=== PATIENT | female | born 1965 | race Caucasian/White ===

== ENCOUNTER → 2020-09-20 05:08 | Outpatient (CLI) | payer BC, SELFPAY ==
[2020-09-20 19:22] LABS: SARS-CoV-2 RNA PCR Negative
== END ==
PROVIDERS: PCP Family Medicine; Visit Provider Internal Medicine Gastroenterology
DX: Z01.812 Encounter for preprocedural laboratory examination (principal); Z20.822 Contact with and (suspected) exposure to COVID-19
CPT/HCPCS: C9803; U0003; U0005

== ENCOUNTER 2020-09-23 01:07 | Day surgery (SDC) | payer BC, SELFPAY ==
[2020-09-10 13:31] VITALS: BMI 26.7
[2020-09-23 10:36] VITALS: BP 155/71; PULSE 80; RESP 16; TEMP 36.9; O2SAT 98; BMI 27.4
--- NOTE | 2020-09-23 10:48 | WPDANESEPPF ---
Anes - Initial Pre Proc Eval Procedure: Operation Date: 09/23/20 11:45 Proposed Procedures p Esophagogastroduodenoscopy - Philippe Santana MD Date/Time: 09/23/20 10:48 Surgeon: Philippe Santana MD Pre Op Diagnosis: GERD Patient Data Age: 55 Gender: F Height: 5 ft 5 in Weight: 74.8 kg Last Vital Signs Temp 98.4 F 09/23/20 10:36 Pulse 80 09/23/20 10:36 Resp 16 09/23/20 10:36 BP 155/71 H 09/23/20 10:36 Pulse Ox 98 09/23/20 10:36 Allergies Allergy/AdvReac Type Severity Reaction Status Date / Time No Known Allergies Allergy Verified 09/23/20 10:36 Home Medications Medication Instructions Recorded Confirmed Type estradiol 2 mg tablet 2 mg PO DAILY 08/22/20 09/10/20 History omeprazole 40 mg capsule,delayed 40 mg PO DAILY #90 cap 08/22/20 09/10/20 Rx release Patient hx anesthesia problems: none Family hx anesthesia problems: none PMFSH Past Medical History Medical History (Updated 09/23/20 @ 10:54 by Deandre Masters MD) Colon cancer screening GERD (gastroesophageal reflux disease) Surgical History Surgical History H/O: hysterectomy (~2006) Social History Social History Smoking status: Never smoker Alcohol intake: current Substance use: never Substance use type: does not use Living arrangements: with family Additional living arrangements comments: Gender identity (if verbalized by the patient): Female Spiritual care concerns: No Anes - Eval Final PreProcedure Day of Procedure 09/23/20 10:48 Patient weight: normal Heart: regular rate and rhythm Airway: Mallampati scale class II Neurological: alert and oriented Last oral intake: >/= 8 hours ASA classification: II Emergent: no Anesthetic plan: proceed Anesthesia type and monitoring: general GIVS and standard monitoring Informed Consent: The patient's anesthetic plan and its attendant risks and benefits were discussed with the patient/family/POA. Questions were solicited and answers provided to the satisfaction of the patient/family/POA.
[2020-09-23] MEDS: LACTATED RINGERS 1,000 ML 150 ML IV CONT (10:57)
--- NOTE | 2020-09-23 11:09 | WPDHPUPDATE1 ---
History and Physical Update Update Date/Time: 09/23/20 11:09 History and Physical has been reviewed, including an updated exam of the patient. There are NO changes in the patient's condition. Risks, benefits, and alternatives have been discussed and questions answered. Patient agrees to proceed with procedure.
[2020-09-23] MEDS: BENZOCAINE (*SP) 60 ML SPRAY CAN (HURRICAINE) 1 SPRAY MUCOUS MEM (11:14)
[2020-09-23 11:25] VITALS: BP 104/41; PULSE 61; RESP 17; O2SAT 100
[2020-09-23 11:35] VITALS: BP 109/58; RESP 19; O2SAT 100
[2020-09-23 11:55] VITALS: BP 119/67; PULSE 61; RESP 17; O2SAT 100
== END 2020-09-23 12:15 | disposition home or self-care (01) ==
PROVIDERS: PCP Family Medicine; Visit Provider Internal Medicine Gastroenterology
PROC: 0DJ08ZZ Inspection of Upper Intestinal Tract, Via Natural or Artificial Opening Endoscopic (ICD-10-PCS; CPT 43235; principal; 2020-09-23 11:45)
DX: K21.9 Gastro-esophageal reflux disease without esophagitis (principal); K44.9 Diaphragmatic hernia without obstruction or gangrene; R07.89 Other chest pain
CPT/HCPCS: 43239; 88305; J2704; J7120

== ENCOUNTER 2020-10-09 14:05 | Outpatient (CLI) | payer BC, SELFPAY ==
[2020-10-09 14:48] LABS: Lipase 90 U/L (23-300)
== END 2020-10-09 14:06 | disposition home or self-care (01) ==
PROVIDERS: PCP Family Medicine; Visit Provider Nurse Practitioner Family
DX: R10.13 Epigastric pain (principal)
CPT/HCPCS: 36415; 83690

== ENCOUNTER 2020-10-29 09:02 | Outpatient (CLI) | payer BC, SELFPAY ==
--- NOTE | ~2020-10-29 | US_ITS ---
US abdomen complete DATE: 10/29/2020 09:39 INDICATION: Epigastric abdominal pain TECHNIQUE: Real-time imaging of the abdomen. Doppler analysis. COMPARISON: None FINDINGS: No hepatic or pancreatic space-occupying mass lesion is evident. Normal hepatopedal portal venous flow direction. No gallstones or gallbladder wall thickening or abnormal pericholecystic fluid collection. Negative s onographic Soto's sign. The common bile duct measures 2.3 mm, normal. Normal splenic size. The right kidney measures 9.2 cm length, left kidney 9.4 cm length. An approximately 6 x 10 mm hypere choic area with some shadowing is noted in the mid to upper right kidney; consider KUB to evaluate fo r possible calcified right renal calculus. No renal mass lesion or hydronephrosis. The abdominal aorta is of normal caliber. Flow is demonstrated in the inferior vena cava. IMPRESSION: Probable right renal calculus; otherwise no significant abnormality Consider KUB for evaluation of possible calcified right renal calculus Reviewed, dictated and finalized at [facility]. Reviewed, dictated and finalized at location A.
== END 2020-10-29 09:03 | disposition home or self-care (01) ==
PROVIDERS: PCP Family Medicine; Visit Provider Nurse Practitioner Family
DX: R10.13 Epigastric pain (principal)
CPT/HCPCS: 76700

== ENCOUNTER 2020-11-12 08:59 | Outpatient (CLI) | payer BC, SELFPAY ==
--- NOTE | ~2020-11-12 | XR_ITS ---
EXAMINATION: XR abdomen/kub 1V INDICATION: Abnormal findings on other diagnostic imaging, possible right nephrolithiasis. TECHNIQUE: Supine views of the abdomen were obtained on 2 radiographs. COMPARISON: None FINDINGS: A 7 mm stone projects in the right mid kidney. No additional urolithiasis is identified. Th e bowel gas pattern is normal. There are no dilated loops of bowel. 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 Phleboliths are noted in the pelvis. IMPRESSION: 1. Right nephrolithiasis. Reviewed, dictated and finalized at location A. IMPRESSION: 1. Right nephrolithiasis.
== END 2020-11-12 09:00 | disposition home or self-care (01) ==
PROVIDERS: PCP Family Medicine; Visit Provider Nurse Practitioner Family
DX: N20.0 Calculus of kidney (principal)
CPT/HCPCS: 74018

== ENCOUNTER 2020-11-25 08:36 | Outpatient (CLI) | payer BC, SELFPAY ==
[2020-11-25 10:14] LABS: INR 0.9
== END 2020-11-25 08:37 | disposition home or self-care (01) ==
PROVIDERS: PCP Family Medicine; Visit Provider Urology
DX: N20.0 Calculus of kidney (principal)
CPT/HCPCS: 36415; 85610; 85730; 87086

== ENCOUNTER → 2020-12-03 01:12 | Outpatient (CLI) | payer BC, SELFPAY ==
[2020-12-03 17:24] LABS: SARS-CoV-2 RNA PCR Negative
== END ==
PROVIDERS: PCP Family Medicine; Visit Provider Urology
DX: Z01.812 Encounter for preprocedural laboratory examination (principal); Z20.822 Contact with and (suspected) exposure to COVID-19
CPT/HCPCS: C9803; U0003; U0005

== ENCOUNTER 2020-12-06 00:48 | Day surgery (SDC) | payer BC, SELFPAY ==
[2020-11-19 14:21] VITALS: BMI 26.7
--- NOTE | 2020-11-26 08:19 | P.HP_ITS ---
History of Present Illness History of Present Illness Consent: Risks, benefits, and alternatives have been discussed and questions answered. Patient agrees to proceed with procedure. Chief complaint: right kidney stones Narrative: Yumiko Cortez is a 55 year old female Without prior known history of urolithiasis. Abdominal ultrasonography for heartburn symptoms revealed a 7- 10 mm stone in her right kidney that is calcified by KUB. After discussion of therapeutic options she has elected for right ESWL. She is aware the risk including, but not limited to, failure to completely fracture her stone, residual fragments acute cause pain and injury to her right kidney. Review of Systems Cardiovascular: Cardiovascular: Denies chest pain, Denies lightheadedness, Denies palpitations and Denies dyspnea Respiratory: Respiratory: Denies dyspnea Gastrointestinal: Gastrointestinal: Denies diarrhea, Denies nausea and Denies vomiting Genitourinary: Genitourinary: Denies hematuria and Denies dysuria Endocrine: Endocrine: Denies palpitations PMFSH Past Medical History Medical History Abnormal finding on imaging Colon cancer screening GERD (gastroesophageal reflux disease) Surgical History Surgical History H/O: hysterectomy (~2006) Social History Social History Smoking status: Never smoker Alcohol intake: current Substance use: never Substance use type: does not use Additional living arrangements comments: HUSB Gender identity (if verbalized by the patient): Female Spiritual care concerns: No Meds Home Medications and Allergies Home Medications Medication Instructions Recorded Confirmed Type estradiol 2 mg tablet 2 mg PO DAILY 08/22/20 11/19/20 History omeprazole 40 mg PO DAILY PRN 11/19/20 11/19/20 History Allergies Allergy/AdvReac Type Severity Reaction Status Date / Time No Known Allergies Allergy Verified 11/19/20 14:18 Exam Const: General: no acute distress Resp: Effort & Inspection: normal respiratory effort GI: Inspection: non-distended GI Palp: No abdominal tenderness and No Guarding due to palpation present (GI) Auscultation: normal bowel sounds Assessment and Plan Assessment and plan (1) Right kidney stone: Code(s): N20.0 - Calculus of kidney Status: Acute
--- NOTE | 2020-12-05 16:12 | WPDANESEPPF ---
Anes - Initial Pre Proc Eval Procedure: Operation Date: 12/06/20 07:30 Proposed Procedures p Right Renal Extracorporeal Shock Wave Lithotripsy - Bay Manzano MD Date/Time: 12/05/20 16:12 Surgeon: Bay Manzano MD Pre Op Diagnosis: right kidney stones Patient Data Age: 55 Gender: F Height: 1.65 m Weight: 73 kg Allergies Allergy/AdvReac Type Severity Reaction Status Date / Time No Known Allergies Allergy Verified 12/06/20 06:20 Home Medications Medication Instructions Recorded Confirmed Type estradiol 2 mg tablet 2 mg PO DAILY 08/22/20 12/06/20 History omeprazole 40 mg PO DAILY PRN 11/19/20 12/06/20 History Patient hx anesthesia problems: none Family hx anesthesia problems: none [facility] Past Medical History Medical History Abnormal finding on imaging Colon cancer screening GERD (gastroesophageal reflux disease) Surgical History Surgical History H/O: hysterectomy (~2006) Social History Social History Smoking status: Never smoker Alcohol intake: current Substance use: never Substance use type: does not use Living arrangements: with family Additional living arrangements comments: KELY Gender identity (if verbalized by the patient): Female Spiritual care concerns: No Anes - Eval Final PreProcedure Day of Procedure 12/05/20 16:12 Patient weight: overweight Heart: regular rate and rhythm Lungs: clear to auscultation and normal air movement Airway: Mallampati scale class II Neurological: alert and oriented Last oral intake: >/= 8 hours ASA classification: II Emergent: no Anesthetic plan: proceed Anesthesia type and monitoring: general LMA Informed Consent: The patient's anesthetic plan and its attendant risks and benefits were discussed with the patient/family/POA. Questions were solicited and answers provided to the satisfaction of the patient/family/POA.
[2020-12-06] VITALS (13 sets, daily range): BP systolic 104–161; BP diastolic 56–92; PULSE 49–72; RESP 12–18; TEMP 36.2–36.3; O2SAT 100; BMI 27.1
--- NOTE | ~2020-12-06 | XR_ITS ---
XR abdomen/kub 1V 12/06/2020 06:09 Indication: Renal stones. Procedure: KUB Comparison: 11/12/2020 Findings: Stable right renal stone. Bowel gas pattern nonobstructive. Moderate colonic fecal loading. There are pelvic phleboliths. No acute osseous abnormality. Impression: 1: Stable right nephrolithiasis. Reviewed, dictated and finalized at location A. Impression: 1: Stable right nephrolithiasis.
[2020-12-06] MEDS: LACTATED RINGERS 1,000 ML 30 ML IV CONT ×3 (06:30→11:27)
--- NOTE | 2020-12-06 06:39 | WPDHPUPDATE1 ---
History and Physical Update Update Date/Time: 12/06/20 06:39 History and Physical has been reviewed, including an updated exam of the patient. There are NO changes in the patient's condition. Risks, benefits, and alternatives have been discussed and questions answered. Patient agrees to proceed with procedure.
[2020-12-06] MEDS: ceFAZolin 2 GM/D5W 50 ML 2 GM/50 ML BAG IVPB (07:26)
--- NOTE | 2020-12-06 09:11 | SUR.PHASEI ---
0900 DR GUERRERO WAS UNABLE TO FININS THE PROCEDURE DUE TO MACHINE BREAKING. PT CURRENTLY IN PACU AWAKE AND DOING WELL, VSS ON ROOM AIR. MACHINE IS BEING REPLACED AND PT WILL THEN BE BROUGHT BACK TO THE OR TO FINISH PROCEDURE. PT/SPOUSE ARE AWARE OF THE SITUATION AND AGREE TO PROCEED WHEN AVAILABLE. DR GUERRERO ALSO SPOKE WITH PT AND SPOUSE.
--- NOTE | 2020-12-06 10:28 | P.OP_ITS ---
Procedure Note - Detailed Date of Procedure 12/06/20 Pre-op Diagnosis right kidney stones Post-op Diagnosis same Procedure Performed right ESWL Surgeon Bay Manzano MD Qualitative Researcher none Anesthesia general Indications right renal stone Findings 9-10mm right renal stone Description of Procedure A bit of an unusual procedure today in the a 950 shocks the Lithotripter quit generating a pulse. This is after the patient had been positioned in routine supine position and after the uneventful induction of a general LMA anesthetic. At that point in the treatment the stone appeared to be only partially fragmented. We decided to awaken the patient and after discussion with her and her decided to proceed with completion the asked while after per curing a 2nd machine. This therefore required a 2nd induction. After that uneventful induction an additional 1550 shocks were administered. Her did appear to be excellent fragmentation of the stone at this point. She tolerated these procedures well. Implants None Estimated Blood Loss 0 Urine Output 425 Drains No Packing No Pathology none sent Complications No immediate complications Condition stable Disposition PACU
--- NOTE | 2020-12-06 14:35 | SUR.PHASEII ---
RN told Dr. Manzano patient is prone to getting yeast infections with antibiotics. Dr. Manzano wrote a script for Diflucan.
== END 2020-12-06 12:58 | disposition home or self-care (01) ==
PROVIDERS: PCP Family Medicine; Visit Provider Urology
PROC: (CPT 50590; principal; 2020-12-06 07:30)
DX: N20.0 Calculus of kidney (principal); K21.9 Gastro-esophageal reflux disease without esophagitis
CPT/HCPCS: 50590; 74018; J0690; J1100; J2250; J2405; J2704; J3010; J7120

== ENCOUNTER 2021-04-10 07:05 | Outpatient (CLI) | payer BC, SELFPAY ==
--- NOTE | ~2021-04-10 | NM_ITS ---
EXAM: NM gastric emptying study DATE: 04/10/2021 12:12 INDICATION: Nausea TECHNIQUE: A gastric emptying study was performed using the methodology of Ming GERMAIN, et al. J Nucl Med 2007; 48:568-572. The patient was given a meal consisting of 2 scrambled eggs labeled with 0.95 mCi Tc-99m sulfur colloid, 2 slices of toast, two packages of jam, and approximately 120 mL of water. Simultaneous anterior and posterior 1-min images of the abdomen were obtained with the patient supin e at multiple time points over a total period of 4 hours. The geometric mean of anterior and posterio r views was determined, and the percentage retention was calculated for each time point. COMPARISON: None. FINDINGS: Gastric retention of the radiotracer-labeled meal was 59%, 30%, and 2% at the 1-hour, 2-hour, and 4-h our time points, respectively. With this technique, apparent rapid gastric emptying is suggested by < 30% gastric retention at 1 hour. Delayed gastric emptying is defined by gastric retention of >90% at 1 hour, >60% retention at 2 hours, or >10% retention at 4 hours. IMPRESSION: 1. Normal gastric emptying. Reviewed, dictated and finalized at location A. IMPRESSION: 1. Normal gastric emptying.
== END 2021-04-10 07:06 | disposition home or self-care (01) ==
LOC: ANHIMG 07:06
PROVIDERS: PCP Family Medicine; Visit Provider Internal Medicine Gastroenterology
DX: R11.0 Nausea (principal)
CPT/HCPCS: 78264; A9541

== ENCOUNTER 2021-09-16 01:08 | Day surgery (SDC) | payer BC, SELFPAY ==
[2021-09-04 13:44] VITALS: BMI 27.5
[2021-09-16 10:03] VITALS: BP 159/60; PULSE 99; RESP 18; TEMP 36.7; O2SAT 99; BMI 28.1
[2021-09-16] MEDS: LACTATED RINGERS 1,000 ML 150 ML IV CONT (10:17)
--- NOTE | 2021-09-16 10:29 | WPDANESEPPF ---
Anes - Initial Pre Proc Eval Procedure: Operation Date: 09/16/21 11:15 Proposed Procedures p Screening Colonoscopy - Philippe Santana MD Date/Time: 09/16/21 10:29 Surgeon: Philippe Santana MD Pre Op Diagnosis: neoplasm screening Patient Data Age: 56 Gender: F Height: 1.65 m Weight: 76.7 kg Last Vital Signs Temp 98.1 F 09/16/21 10:03 Pulse 99 09/16/21 10:03 Resp 18 09/16/21 10:03 BP 159/60 H 09/16/21 10:03 Pulse Ox 99 09/16/21 10:03 Allergies Allergy/AdvReac Type Severity Reaction Status Date / Time No Known Allergies Allergy Verified 09/16/21 10:02 Home Medications Medication Instructions Recorded Confirmed Type estradiol 2 mg tablet 2 mg PO DAILY 08/22/20 09/16/21 History baclofen 5 mg tablet 5 mg PO TID #60 tablet 03/20/21 09/16/21 Rx omeprazole 20 mg capsule,delayed 20 mg PO DAILY #30 cap 06/26/21 09/16/21 Rx release Patient hx anesthesia problems: none Family hx anesthesia problems: none Results Review: All pre-operative results and documents have been reviewed as part of the pre-operative evaluation. [facility] Past Medical History Medical History (Updated 06/26/21 @ 09:46 by Philippe Santana MD) Abnormal finding on imaging Colon cancer screening GERD (gastroesophageal reflux disease) Nausea Surgical History Surgical History H/O: hysterectomy (~2006) Social History Social History Smoking status: Never smoker Alcohol intake: current Alcohol use details: rarely Substance use: never Substance use type: does not use Living arrangements: with family Additional living arrangements comments: HUSB Gender identity (if verbalized by the patient): Female Sexual Orientation (if Verbalized by the Patient): Straight or Heterosexual Spiritual care concerns: No Anes - Eval Final PreProcedure Day of Procedure 09/16/21 10:29 Patient weight: normal Heart: regular rate and rhythm Lungs: clear to auscultation Airway: Mallampati scale class II Neurological: alert and oriented Last oral intake: >/= 8 hours ASA classification: II Emergent: no Anesthetic plan: proceed Anesthesia type and monitoring: general GIVS and standard monitoring Results Review: All pre-operative results and documents have been reviewed as part of the pre-operative evaluation. Informed Consent: The patient's anesthetic plan and its attendant risks and benefits were discussed with the patient/family/POA. Questions were solicited and answers provided to the satisfaction of the patient/family/POA.
--- NOTE | 2021-09-16 10:49 | PM.HPGS ---
History of Present Illness History of Present Illness Consent: Risks, benefits, and alternatives have been discussed and questions answered. Patient agrees to proceed with procedure. Chief complaint: neoplasm screening Narrative: Yumiko Cortez is a 56 year old female here for first screening colonoscopy Review of Systems Constitutional: Constitutional: Denies headache(s) and Denies weakness Eyes: Eyes: Denies blurry vision ENT: Reports Normal hearing present, Denies headache(s) and Denies neck pain Cardiovascular: Cardiovascular: Denies chest pain and Denies dyspnea Respiratory: Respiratory: Denies dyspnea Gastrointestinal: Gastrointestinal: Reports no additional gastrointestinal complaints Genitourinary: Genitourinary: Denies dysuria Musculoskeletal: Musculoskeletal: Denies neck pain Integumentary/Breasts: Skin/Breast: Denies dry skin Neurologic: Reports Normal hearing present, Denies headache(s) and Denies weakness Psychiatric: Psychiatric: Denies anxiety Endocrine: Endocrine: Denies change in body appearance Hematologic/Lymphatic: Hematologic/Lymphatic: Denies easy bleeding Allergic/Immunologic: Allergic/Immunologic: Denies urticaria ON LICENSE OF [facility] Past Medical History Medical History (Updated 06/26/21 @ 09:46 by Philippe Santana MD) Abnormal finding on imaging Colon cancer screening GERD (gastroesophageal reflux disease) Nausea Surgical History Surgical History H/O: hysterectomy (~2006) Social History Social History Smoking status: Never smoker Alcohol intake: current Alcohol use details: rarely Substance use: never Substance use type: does not use Living arrangements: with family Additional living arrangements comments: KELY Gender identity (if verbalized by the patient): Female Sexual Orientation (if Verbalized by the Patient): Straight or Heterosexual Spiritual care concerns: No Meds Home Medications and Allergies Home Medications Medication Instructions Recorded Confirmed Type estradiol 2 mg tablet 2 mg PO DAILY 08/22/20 09/16/21 History baclofen 5 mg tablet 5 mg PO TID #60 tablet 03/20/21 09/16/21 Rx omeprazole 20 mg capsule,delayed 20 mg PO DAILY #30 cap 06/26/21 09/16/21 Rx release Allergies Allergy/AdvReac Type Severity Reaction Status Date / Time No Known Allergies Allergy Verified 09/16/21 10:02 Vital Signs Vital Signs - 24 hr 09/16/21 10:03 Temperature 98.1 F Pulse Rate 99 Respiratory Rate 18 Blood Pressure 159/60 H Pulse Oximetry 99 Exam Const: General: comfortable and no acute distress HENMT: General nose exam: Normal nares present Eyes: General: appearance normal, both eyes and all related structures Neck: Neck: no JVD Resp: Auscultation: clear to auscultation bilaterally Cardio: Rate: regular rate Rhythm: regular rhythm GI: Inspection: non-distended GI Palp: Yes Soft to palpation Skin: General skin exam: normal color Neuro: General: gait normal Speech: normal speech Extrem: General: normal to inspection Psych: Mental Status: mental status grossly normal Assessment and Plan Assessment and plan (1) Colon cancer screening: Code(s): Z12.11 - Encounter for screening for malignant neoplasm of colon Status: Acute Assessment and Plan: colonoscopy
[2021-09-16 11:11] VITALS: BP 106/75; PULSE 60; RESP 22; O2SAT 99
[2021-09-16 11:21] VITALS: BP 116/71; PULSE 54; RESP 19; O2SAT 96
[2021-09-16 11:31] VITALS: BP 145/72; PULSE 53; RESP 19; O2SAT 100
== END 2021-09-16 11:42 | disposition home or self-care (01) ==
PROVIDERS: PCP Family Medicine; Visit Provider Internal Medicine Gastroenterology
PROC: 0DJD8ZZ Inspection of Lower Intestinal Tract, Via Natural or Artificial Opening Endoscopic (ICD-10-PCS; CPT 45378; principal; 2021-09-16 11:15)
DX: Z12.11 Encounter for screening for malignant neoplasm of colon (principal); K21.9 Gastro-esophageal reflux disease without esophagitis
CPT/HCPCS: 45378; J2704; J7120

== ENCOUNTER 2022-02-11 09:27 | Outpatient (CLI) | payer BC, SELFPAY ==
[2022-02-11 18:43] LABS: Basophils Absolute Auto 0.2 K/mm3 (0.0-0.1); Basophils Percent Auto 2.3 % (0.2-1.2); Eosinophils Absolute Auto 0.3 K/mm3 (0-0.3); Eosinophils Percent Auto 3.1 % (0-4.4); Hematocrit 43.9 % (37.0-47.0); Immature Granulocyte Absolute 0.02 K/mm3 (0.00-0.031); Immature Granulocyte Percent A 0.3 % (0-0.5); Lymphocytes Absolute Auto 2.08 K/mm3 (0.9-3.2); Lymphocytes Percent Auto 26.2 % (18.3-44.2); Mean Corpuscular HGB Conc 31.9 g/dl (32-36); Mean Corpuscular Volume 91.1 fl (80-100); Mean Platelet Volume 10.9 fl (7.4-10.4); Monocytes Absolute Auto 0.7 K/mm3 (0.1-0.6); Monocytes Percent Auto 8.6 % (2.6-8.5); Neutrophils Absolute Auto 4.7 K/mm3 (1.3-6.7); Neutrophils Percent Auto 59.5 % (45.5-73.1); Platelet Count Result 346 k/mm3 (150-375); Red Blood Count 4.82 M/mm3 (4.2-5.4); Red Cell Distribution Width 12.7 % (11.5-14.5)
[2022-02-11 20:07] LABS: Alanine Aminotransferase 17 U/L (6-35); Albumin Level 4.1 g/dL (3.5-5.1); Alkaline Phosphatase 105 U/L (38-126); Amylase 63 U/L (30-110); Anion Gap 8 mmol/L (8-16); Aspartate Amino Transferase 37 U/L (14-36); Bilirubin,Total 0.3 mg/dL (0.2-1.3); Blood Urea Nitrogen 16 mg/dL (7-17); Calcium 9.4 mg/dL (8.4-10.2); Carbon Dioxide 28 mmol/L (22-30); Chloride 101 mmol/L (98-107); Cholesterol 192 mg/dL (0-200); Estimated Glomerular Filt Rate > 60; Glucose 88 mg/dL (65-110); HDL Direct 77 mg/dL; Lipase 60 U/L (23-300); Potassium 5.2 mmol/L (3.4-5.0); Sodium 137 mmol/L (137-145); Triglycerides 46 mg/dL (<150)
[2022-02-11 20:18] LABS: LDL Cholesterol Direct 85 mg/dL
== END 2022-02-11 09:28 | disposition home or self-care (01) ==
LOC: ANHGOSHLAB 09:30
PROVIDERS: PCP Family Medicine; Visit Provider Nurse Practitioner
DX: R10.10 Upper abdominal pain, unspecified (principal); Z13.220 Encounter for screening for lipoid disorders; R10.13 Epigastric pain
CPT/HCPCS: 36415; 80053; 80061; 82150; 83690; 85025; 86003

== ENCOUNTER 2022-02-16 16:08 | Outpatient (CLI) | payer BC, SELFPAY ==
--- NOTE | ~2022-02-16 | CT_ITS ---
EXAMINATION: CT abdomen pelvis wo con DATE: 02/16/2022 16:32 INDICATION: Left flank pain. Epigastric abdominal pain. TECHNIQUE: Computed tomography (CT) of the abdomen and pelvis was performed without intravenous contr ast. Automated exposure control and iterative reconstruction technique were employed. The dose-length product was 574.41 mGy-cm. COMPARISON: None. FINDINGS: The visualized portions of the lung bases demonstrate mild atelectasis. A calcified right l ignacio nodule is consistent with old granulomas disc disease. No pleural effusion. The heart size is nor mal. No pericardial effusion. Calcifications in the liver and spleen are consistent with old granulom atous disease. The gallbladder, pancreas, and adrenal glands are normal. There is a 7 mm calcificatio n in right kidney that may be parenchymal. Left kidney is normal. There are no dilated loops of bowel . The appendix is normal. There are no pathologically enlarged lymph nodes. There is no free intraper itoneal fluid. There is an umbilical hernia containing fat. There is moderate lumbar spondylosis. IMPRESSION: 1. No urolithiasis. 2. Umbilical hernia containing fat. Reviewed, dictated and finalized at location A.
--- NOTE | ~2022-02-16 | XR_ITS ---
EXAMINATION: XR abdomen/kub 1V DATE: 02/16/2022 16:24 INDICATION: Left flank pain. TECHNIQUE: A supine view of the abdomen on 2 radiographs was obtained. COMPARISON: CT abdomen and pelvis 02/16/2022 FINDINGS: There are no dilated loops of bowel. There are phleboliths in the pelvis. A calcification o verlying right kidney is likely parenchymal. IMPRESSION: 1. No urolithiasis. Reviewed, dictated and finalized at location A. IMPRESSION: 1. No urolithiasis.
== END 2022-02-16 16:09 | disposition home or self-care (01) ==
LOC: ANHIMG 16:12
PROVIDERS: PCP Family Medicine; Visit Provider Nurse Practitioner Adult Health
DX: R10.9 Unspecified abdominal pain (principal); K42.9 Umbilical hernia without obstruction or gangrene
CPT/HCPCS: 74018; 74176

== ENCOUNTER 2022-02-18 08:10 | Outpatient (CLI) | payer BC, SELFPAY ==
[2022-02-18 20:10] LABS: Alanine Aminotransferase 19 U/L (6-35); Albumin Level 4.1 g/dL (3.5-5.1); Alkaline Phosphatase 98 U/L (38-126); Anion Gap 9 mmol/L (8-16); Aspartate Amino Transferase 34 U/L (14-36); Bilirubin,Total 0.3 mg/dL (0.2-1.3); Blood Urea Nitrogen 17 mg/dL (7-17); Calcium 9.2 mg/dL (8.4-10.2); Carbon Dioxide 28 mmol/L (22-30); Chloride 101 mmol/L (98-107); Estimated Glomerular Filt Rate > 60; Glucose 93 mg/dL (65-110); Potassium 4.2 mmol/L (3.4-5.0); Sodium 138 mmol/L (137-145)
== END 2022-02-18 08:11 | disposition home or self-care (01) ==
LOC: ANHGOSHLAB 08:12
PROVIDERS: PCP Family Medicine; Visit Provider Nurse Practitioner
DX: E87.5 Hyperkalemia (principal)
CPT/HCPCS: 36415; 80053

== ENCOUNTER 2022-12-14 09:41 | Outpatient (CLI) | payer BC, SELFPAY ==
[2022-12-14 15:58] LABS: Basophils Absolute Auto 0.2 K/mm3 (0.0-0.1); Basophils Percent Auto 1.5 % (0.2-1.2); Eosinophils Absolute Auto 0.2 K/mm3 (0-0.3); Eosinophils Percent Auto 1.7 % (0-4.4); Hematocrit 44.6 % (37.0-47.0); Hemoglobin 14.3 g/dL (12.0-15.0); Immature Granulocyte Absolute 0.03 K/mm3 (0.00-0.031); Immature Granulocyte Percent A 0.3 % (0-0.5); Lymphocytes Absolute Auto 2.12 K/mm3 (0.9-3.2); Lymphocytes Percent Auto 18.5 % (18.3-44.2); Mean Corpuscular HGB Conc 32.1 g/dl (32-36); Mean Corpuscular Hemoglobin 29.1 pg (26-34); Mean Corpuscular Volume 90.7 fl (80-100); Mean Platelet Volume 10.6 fl (7.4-10.4); Monocytes Absolute Auto 0.9 K/mm3 (0.1-0.6); Monocytes Percent Auto 7.7 % (2.6-8.5); Neutrophils Absolute Auto 8.1 K/mm3 (1.3-6.7); Neutrophils Percent Auto 70.3 % (45.5-73.1); Platelet Count Result 389 k/mm3 (150-375); Red Blood Count 4.92 M/mm3 (4.2-5.4); Red Cell Distribution Width 12.9 % (11.5-14.5); White Blood Count 11.5 K/mm3 (4.5-10.0)
[2022-12-14 17:11] LABS: Vitamin D 25 Hydroxy 61.8 ng/mL
[2022-12-14 18:02] LABS: Hemoglobin A1C 5.5 % (<5.7)
[2022-12-14 18:21] LABS: Alanine Aminotransferase 25 U/L (6-35); Albumin Level 4.1 g/dL (3.5-5.1); Alkaline Phosphatase 109 U/L (38-126); Anion Gap 3 mmol/L (8-16); Aspartate Amino Transferase 37 U/L (14-36); Bilirubin,Total 0.3 mg/dL (0.2-1.3); Blood Urea Nitrogen 16 mg/dL (7-17); Calcium 9.3 mg/dL (8.4-10.2); Carbon Dioxide 29 mmol/L (22-30); Chloride 106 mmol/L (98-107); Cholesterol 210 mg/dL (0-200); Estimated Glomerular Filt Rate > 60; Glucose 93 mg/dL (65-110); HDL Direct 73 mg/dL; Potassium 4.3 mmol/L (3.4-5.0); Sodium 138 mmol/L (137-145); Triglycerides 70 mg/dL (<150)
[2022-12-14 18:35] LABS: LDL Cholesterol Direct 102 mg/dL
== END 2022-12-14 09:42 | disposition home or self-care (01) ==
LOC: ANHGOSHLAB 09:42
PROVIDERS: PCP Family Medicine; Visit Provider Nurse Practitioner Family
DX: Z00.00 Encounter for general adult medical examination without abnormal findings (principal); R10.9 Unspecified abdominal pain; K21.9 Gastro-esophageal reflux disease without esophagitis; I10 Essential (primary) hypertension; Z13.1 Encounter for screening for diabetes mellitus; Z13.220 Encounter for screening for lipoid disorders; Z13.29 Encounter for screening for other suspected endocrine disorder; E53.8 Deficiency of other specified B group vitamins; Z13.21 Encounter for screening for nutritional disorder
CPT/HCPCS: 36415; 80053; 80061; 82306; 82607; 83036; 84443; 85025

== ENCOUNTER 2023-01-19 08:41 | Outpatient (CLI) | payer BC, SELFPAY ==
--- NOTE | ~2023-01-19 | NM_ITS ---
EXAMINATION: NM hepatobiliary wo pharm DATE: 01/19/2023 11:57 INDICATION: Epigastric abdominal pain. COMPARISON: Ultrasound 01/19/2023 TECHNIQUE: 5.3 mCi Tc-99m mebrofenin (Choletec) was administered intravenously. Scintigraphic images of the abdomen were obtained for one hour. Then, the patient drank 8 oz Ensure, and imaging was cont inued for 60 minutes. FINDINGS: There is normal clearance of radiotracer from the blood pool. There is homogeneous tracer u ptake by the liver. Activity progresses to the bowel and gallbladder. Gallbladder ejection fraction (GBEF) was 95%. Note that with this technique, normal GBEF >= 33%. IMPRESSION: 1. Normal hepatobiliary scintigraphy. Reviewed, dictated and finalized at location A.
--- NOTE | ~2023-01-19 | US_ITS ---
Limited Abdominal Sonogram: Real-time sonographic imaging of the right upper quadrant was performed. Clinical History: Abdominal pain Findings: The liver appears normal with no evidence of mass lesion or bile duct dilatation. Main por geetha vein demonstrates normal direction of flow. The gallbladder is well distended, and appears normal with no evidence of gallstone or wall thickening. The common bile duct measures 5 mm. The visualize d pancreas, aorta, and IVC are unremarkable. Impression: No significant abnormality seen. Reviewed, dictated and finalized at location . Impression: No significant abnormality seen.
== END 2023-01-19 08:42 | disposition home or self-care (01) ==
PROVIDERS: PCP Family Medicine; Visit Provider Surgery
DX: R10.13 Epigastric pain (principal)
CPT/HCPCS: 76705; 78226; A9537

== ENCOUNTER → 2023-07-21 09:37 | Outpatient (CLI) | payer BC, SELFPAY ==
--- NOTE | ~2023-07-21 | XR_ITS ---
AP and lateral views of the left hip Clinical history: Pain Findings: No acute fracture or dislocation is seen. Osseous alignment is anatomic. Left hip joint spa ce is preserved. Soft tissues are unremarkable. Impression: No significant abnormality is seen. Reviewed, dictated and finalized at location . R GRINDER Impression: No significant abnormality is seen.
--- NOTE | ~2023-07-21 | XR_ITS ---
Lumbosacral Spine: AP and lateral views Clinical History: Pain Findings: The normal lordotic curve is maintained. The vertebral bodies and posterior elements are i ntact. There is mild dextro scoliosis with moderate facet arthropathy. The sacroiliac joints are norm ally outlined. Impression: Mild dextro scoliosis with moderate facet arthropathy. Reviewed, dictated and finalized at location . PHONE SWITCHBOARD OPERATOR Impression: Mild dextro scoliosis with moderate facet arthropathy.
== END ==
PROVIDERS: PCP Nurse Practitioner Family; Visit Provider Nurse Practitioner Family
DX: M41.86 Other forms of scoliosis, lumbar region (principal); M47.816 Spondylosis without myelopathy or radiculopathy, lumbar region; L65.9 Nonscarring hair loss, unspecified; M54.32 Sciatica, left side
CPT/HCPCS: 72100; 73502

== ENCOUNTER 2023-07-21 10:05 | Outpatient (CLI) | payer BC, SELFPAY ==
[2023-07-21 13:53] LABS: INR 1.1; Prothrombin Time 14.2 Seconds (11.1-14.7)
[2023-07-21 13:57] LABS: Alanine Aminotransferase 23 U/L (6-35); Albumin Level 4.3 g/dL (3.5-5.1); Alkaline Phosphatase 109 U/L (38-126); Anion Gap 7 mmol/L (8-16); Aspartate Amino Transferase 34 U/L (14-36); Bilirubin,Total 0.5 mg/dL (0.2-1.3); Blood Urea Nitrogen 17 mg/dL (7-17); Calcium 9.6 mg/dL (8.4-10.2); Carbon Dioxide 29 mmol/L (22-30); Chloride 104 mmol/L (98-107); Estimated Glomerular Filt Rate > 60; Glucose 90 mg/dL (65-110); Potassium 4.4 mmol/L (3.4-5.0); Sodium 140 mmol/L (137-145)
[2023-07-21 14:12] LABS: Erythrocyte Sedimentation Rate 13 mm/hr (0-20)
[2023-07-21 14:22] LABS: Thyroid Stimulating Hormone 0.552 uIU/mL (0.465-4.680)
[2023-07-25 20:18] LABS: CRP, High Sensitivity 4.8 mg/L (***)
== END 2023-07-21 10:06 | disposition home or self-care (01) ==
LOC: ANHGOSHLAB 10:07
PROVIDERS: PCP Nurse Practitioner Family; Visit Provider Nurse Practitioner Family
DX: Z00.00 Encounter for general adult medical examination without abnormal findings (principal); L65.9 Nonscarring hair loss, unspecified; M25.50 Pain in unspecified joint; M54.30 Sciatica, unspecified side; M54.9 Dorsalgia, unspecified; R23.3 Spontaneous ecchymoses; Z13.89 Encounter for screening for other disorder; Z13.29 Encounter for screening for other suspected endocrine disorder
CPT/HCPCS: 36415; 80053; 84443; 85610; 85652; 86038; 86039; 86141

== ENCOUNTER 2024-01-31 09:45 | Outpatient (CLI) | payer BC, SELFPAY ==
--- NOTE | ~2024-01-31 | MR_ITS ---
Procedure: MR lumbar spine wo con Ordering provider: Faraz Montiel, JEWELRY INSPECTOR History: . LUMBAR RADICULAR PAIN . Comparison: None. Technique: MRI thoracic spine without contrast. FINDINGS: SPINAL CORD: Normal. The cord ends at the level of L1. VERTEBRAL BODIES: Normal height and alignment. No compression fracture. Normal marrow signal. Hemangi luis in the superior endplate of T12. DISK SPACES: Narrowing of the disc L2-L3 and L3-L4. L1-L2: Normal. L2-L3: Mild spinal canal stenosis. Slight thickening of the ligamenta flava. Bilateral narrowing of t he foramina. L3-L4: Mild spinal canal stenosis. Thickening of the ligamenta flava. Narrowing of the foramina with bilateral nerve root compression. L4-L5: Moderate spinal canal stenosis. Annulus tear. Thickening of the ligamenta flava. Bilateral shilo rowing of the foramina with nerve root compression more on the right side. L5-S1: Diffuse disc bulge. PARASPINOUS SOFT TISSUES: Normal. IMPRESSION: No compression fracture. Degenerative disc disease at the level of L2-L3 and L3-L4. Multilevel spinal canal stenosis, thickening of the ligamenta flava and intervertebral foraminal narr owing Reviewed, dictated and finalized at location A. IMPRESSION: No compression fracture. Degenerative disc disease at the level of L2-L3 and L3-L4. Multilevel spinal canal stenosis, thickening of the ligamenta flava and interve rtebral foraminal narrowing
== END 2024-01-31 09:46 ==
PROVIDERS: Visit Provider Nurse Practitioner Family
DX: M54.16 Radiculopathy, lumbar region (principal); M51.36 Other intervertebral disc degeneration, lumbar region; M48.061 Spinal stenosis, lumbar region without neurogenic claudication
CPT/HCPCS: 72148

== ENCOUNTER 2025-02-15 09:16 | Outpatient (CLI) | payer BC, SELFPAY ==
--- OUTSIDE RECORDS SUMMARY | 2025-02-15 09:19 | XMS_ITS | Encounter Summary ---
Author Organization [facility] Healthcare Address [address] [place] [address] Care Team Providers Care Audio Visual Manager Name Role Phone Ame Phelps MD Primary Care Provider [phone] Gia Reyes MD Primary Care Provider Reason for Visit * Reason Onset Date Comments Scheduling Appointments 02/25/2021 Confirmi ng mammogram appt Encounter Details Date Type Department Care Team (Late st Contact Info) Description 02/25/2021 Telephone [facility] [address] [place] [address] Mi Tucker RT Scheduling Appointments (Confirming mammogram appt) Social History Tobacco Use Types Packs/Day Years Used Date Smoking Tobacco: Never Smokeless Tobacco: Never Alcohol Use Standard Drinks/Week Comments No 0 (1 standard drink = 0.6 oz pur e alcohol) Comments No Sex and Gender Information Value Date Recorded Sex Assigned at Not on file Legal Sex Female 7:39 PM [employer] Gender Identity Not on file Sexual Orientation Not on file documented as of this encounter Plan of Treatment Not on file documented as of this encounter Visit Diagnoses Not on filedocumented in this encounter Care Teams Audio Visual Manager Relationship Specialty Start Date End Date Ame Phelps MD [address] [place] [address] DR MER[facility]I [facility]sieh [facility] [address] [place] [address] PCP - General 03/20/19 02/25/21 Gia Reyes MD [address] [place] [address] DR MERARI Hsieh [facility] [address] [place] [address] PCP - General 02/26/21 documented as of this encounter
--- OUTSIDE RECORDS SUMMARY | 2025-02-15 09:19 | XMS_ITS | Clinical Summary ---
Author Organization [facility] Address [address] [place] [address] Care Team Providers Care Director Translational Name Role Phone Gia Reyes MD Primary Care Provider Allergies No known active allergies Medications estradiol (ESTRACE) 2 mg tablet TK 1 T PO QD 0 Active cyanocobalamin (Vitamin B-12) 500 mcg tabletIndicatio ns:Prevention of Vitamin B12 Deficiency Take 500 mcg by mouth daily Active pantoprazole DR (PROTONIX) 40 mg EC tablet Take 1 tablet (40 mg total) by mouth 2 (two) times a day 60 tablet 11 2 Active Additional Information Patient not taking.Reported on 10/01/2023 ibuprofen (ADVIL,MOTRIN) 800 mg tablet Take 1 tablet (800 mg total) by mouth 3 (three) times a day 4 Active triamcinolone (KENALOG) 0.1 % creamIndication s:Cellulitis of right lower extremity Apply topically 3 (three) times a day for 10 days 80 g 4 Active fluconazole (DIFLUCAN) 150 mg tabletIndicatio ns:Antibiotic-i nduced yeast infection Take one tab now. Repeat in 3 days if symptoms persist. 2 tablet 4 Active Active Problems Problem Noted Date Diagnosed Date Upper abdominal pain 05/20/2022 Encounters Date Type Department Care Team Description 01/29/2025 9:35 AM CDT Lab [facility] [address] [id number] from Last 3 Months Surgical History Surgery Date Site/Laterality Comments HYSTERECTOMY 06/21/2006 - 06/20/2007 Hysterectomy BREAST BIOPSY 03/21/2008 - 04/20/2008 Left benign needle bx LITHOTRIPSY 06/21/2020 - 06/20/2021 kidney stone ESOPHAGOGASTRODUODENOSCOPY 06/21/2020 - 06/20/2021 COLONOSCOPY 10/06/2021 Medical History Medical History Date Comments Nephrolithiasis Family History Medical History Relation Name Comments Abdominal Aortic Aneurysm Father Gallbladder disease Father cholecys tectomy Breast cancer Father's Sister Other Mother Alive and well; Breast cancer Mother's Sister Ovarian cancer Neg Hx Thyroid cancer Neg Hx Relation Name Status Comments Father Alive Father's Sister Mother Alive Mother's Sister Social History Tobacco Use Types Packs/Day Years Used Date Smoking Tobacco: Never Smokeless Tobacco: Never Tobacco Cessation:Counseling Given: Not Answered Alcohol Use Standard Drinks/Week Comments No 0 (1 standard drink = 0.6 oz pur e alcohol) Comments No Sex and Gender Information Value Date Recorded Sex Assigned at Not on file Legal Sex Female 7:39 PM [employer] Gender Identity Not on file Sexual Orientation Not on file 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 Not on file Not on file Obstetrics History Para Term AB IAB SAB Ectopic Multiple Livin g Live Births 0 0 0 0 0 0 0 0 0 0 0 Last Filed Vital Signs Vital Sign Reading Time Taken Comments Blood Pressure 122/76 03/28/2024 3:55 PM CDT Pulse 82 03/28/2024 3:55 PM CDT Temperature 36.7 C (98 F) 03/28/2024 3:55 PM CDT Respiratory Rate 16 03/28/2024 3:55 PM CDT Oxygen Saturation 98% 03/28/2024 3:55 PM CDT Inhaled Oxygen Concentration - - Weight 77.6 kg (171 lb) 03/28/2024 3:55 PM CDT Height 165.1 cm (5' 5) 03/28/2024 3:55 PM CDT Body Mass Index 28.46 03/28/2024 3:55 PM CDT Plan of Treatment Health Maintenance Due Date Last Done Comments Colon Cancer Screening-Colonoscopy 1965 Depression Screening 1965 DTaP/Tdap/Td Vaccine (1 - Tdap) 02/11/1976 Regular Well Visit/Exam 18-64 1983 Covid-19 Vaccine (2 - 2023- season) 2024 09/26/2020 Breast Cancer Screening-Mammogram 09/28/2024 09/29/2023, 02/26/2021, 03/20/2019, Additional history exists Influenza Vaccine (#1) 2025 Zoster Vaccine Completed 05/21/2021, 03/13/2021 Hepatitis B Screening Completed 01/29/2025 Hepatitis C Screening Completed 01/29/2025 Pneumococcal vaccine <65 Aged Out No longer eligible based on patient's age to complete this topic Procedures Procedure Name Priority Date/Time Associated Diagnosis Comments LATOYA-1 ANTIBODY Routine 01/29/2025 9:41 AM CDT SCL 70 ANTIBODIES Routine 01/29/2025 9:4 1 AM CDT COUNSELOR DORMITORY ANTIBODIES Routine 01/29/2025 9:41 AM CDT GODINEZ ANTIBODIES Routine 01/29/2025 9:41 AM CDT SJOGRENS SYNDROME-B ANTIBODY Routine 01/29/2025 9:41 AM CDT SJOGRENS SYNDROME-A ANTIBODY Routine 01/29/2025 9:41 AM CDT BLOOD MISC TO ATLANTA Routine 01/29/2025 9: 41 AM CDT EGFR Routine 01/29/2025 9:41 AM CDT PHOSPHORUS Routine 01/29/2025 9:41 AM CDT COMPREHENSIVE METABOLIC PANEL Routine 01/29/2025 9:41 AM CDT CBC WITHOUT DIFFERENTIAL Routine 01/29/2025 9:41 AM CDT ILAN QUALITATIVE WITH REFLEX TO ILAN QUANTITATIVE Routine 01/29/2025 9:41 AM CDT CRP (ACUTE PHASE) Routine 01/29/2025 9:4 1 AM CDT CYCLIC CITRUL PEPTIDE ANTIBODY, IGG Routine 01/29/2025 9:41 AM CDT ODIN ANTIBODY EVALUATION WITH REFLEX Routine 01/29/2025 9:41 AM CDT RHEUMATOID FACTOR Routine 01/29/2025 9:4 1 AM CDT ERYTHROCYTE SEDIMENTATION RATE Routine 01/29/2025 9:41 AM CDT TSH Routine 01/29/2025 9:41 AM CDT URINALYSIS AND REFLEX TO MICROSCOPIC Routine 01/29/2025 9:41 AM CDT URIC ACID Routine 01/29/2025 9:41 AM CDT TB TEST, QUANTIFERON GOLD Routine 01/29/2025 9:41 AM CDT LUPUS ANTICOAGULANT PANEL PLUS REFLEXES Routine 01/29/2025 9:41 AM CDT BETA 2 GLYCOPROTEIN ANTIBODY, IGG, IGM Routine 01/29/2025 9:41 AM CDT THYROID PEROXIDASE ANTIBODY Routine 01/29/2025 9:41 AM CDT INFLAMMATORY BOWEL DISEASE PANEL Routine 01/29/2025 9:41 AM CDT HEPATITIS B SURFACE ANTIBODY (IMMUNE STATUS) Routine 01/29/2025 9:41 AM CDT HEPATITIS PANEL, ACUTE Routine 01/29/2025 9:41 AM CDT GLIADIN ANTIBODY, IGA Routine 01/29/2025 9:33 AM CDT TISSUE TRANSGLUTAMINASE, IGA Routine 01/29/2025 9:33 AM CDT SCREENING MAMMOGRAM BILATERAL W CYRUS Schedule Routine, Read Routine (OP Routine) 09/29/2023 8:43 AM CDT Screening mammogram, encounter for from Last 3 Months or Most Recently Relevant to Health Maintenance Results * Lupus Anticoagulant Panel plus Reflexes (01/29/2025 9:41 AM CDT) PT 12.3 10.2 - 13.5 sec Comment:Testing performed by : [facility], [address] [place]., [address] INR 1.09 0.90 - 1.20 [facility] ([place] M) Comment: Interpretive data Oral anticoagulant therapeutic ranges: Venous thromboembolism prophylaxis or treatment: 2.0-3.0 CARDIOLOGY Standard range: 2.0-3.0 High-intensity range: 2.5-3.5 Refer to indication-specific guidelines for appropriate target ranges for prosthetic heart valve replacement. Current interpretive data was last revised on 2019. Testing performed by: [facility], [address] [place]., [address] aPTT 34 26 - 38 sec [facility] (JUAN M) Comment: Interpretive Data Heparin therapeutic range: 66.0 - 100.0 seconds. Range based on correlation with therapeutic heparin activity range of 0.3 - 0.7 Units/mL. Current interpretive data was last revised on 2023. Testing performed by: [facility], [address] [place]., [address] DRVVT screen ratio 1.03 0.00 - 1.20 Ratio [facility] (JUAN M) Comment:Testing performed by : [facility], [address] [place] [address] SCT Screen Ratio 1.03 0.00 - 1.16 Ratio [facility] (JUAN M) Comment:Testing performed by : [facility], [address] [place]., [address] Lupus anticoagulant, interp Negative [facility] (JUAN M) Comment: Interpretive data Lupus anticoagulants (LA) are acquired autoantibodies that interfere with invitro clotting in a phospholipid-dependent manner and are associated with an increased risk of thromboembolic events and complications. Routine APTT and PT reagents are not sensitive to inhibition by LA, and should not be used as screening tests. The laboratory follows ISTH 2009 guidelines (Druo, 2009) for LA testing and interpretation: Two sensitive methods performed in parallel improve sensitivity. One activates the intrinsic pathway (Silica-APTT) and one activates the common pathway (dilute Osmany's viper venom time - dRVVT). Each method begins with a SCREEN step, and if neither is prolonged, no further testing is performed and the interpretation is: NO LA DETECTED. If either screening test is prolonged, then additional steps are performed to provide specificity. A POSITIVE LA result occurs if either one or both tests produce a positive CONFIRM result. An INDETERMINATE result means results cannot distinguish between coagulopathy and a weak LA. Consider retesting when PT/INR is less prolonged, if clinical indicated. To support laboratory confirmation of antiphospholipid syndrome, persistence of a positive LA result should be verified by repeat testing at least 12 weeks later (Paco, 2006). Prior to LA testing, the laboratory screens patient plasma samples for evidence of heparin contamination, which is neutralized prior to LA testing, and the following interfering conditions which require canceling LA testing: INR >3.0, fibrinogen < 100 mg/dl, use of direct oral or IV anticoagulants other than heparin. References: 1) Vasu V, Carlos Eduardo A, Asiya JH, Oryaneth TL, Shawn M, De Juliano PG. Update of the guidelines for lupus anticoagulant detection. J Thromb Haemost. 2009; 7:9626-9586. 2. Paco Sheridan. et al. International consensus statement on an update of the classification criteria for definite antiphospholipid syndrome (APS). J Thromb Haemost. 2006; 4:295-306. Current interpretive data was last revised on 2018 Testing performed by: [facility], [address] [place] [address] Blood 01/29/2025 9:41 AM CDT 01/30/2025 10:06 AM CDT us Waldo Drummond MD LAB BLOOD ORDERABLES Final Res ult PARDEEP GUERRERO (JUAN M) 1 [facility] [place] [address] * (ABNORMAL) ILAN ab ql w/rflx to ILAN qn (01/29/2025 9:41 AM CDT) ILAN Positive( A) Comment: Interpretive Data Normal range for ILAN Qualitative Antibody = Negative. 1. ILAN is performed using indirect immunofluorescence against HEp-2 cells 2. ILAN titers are performed on all positive qualitative results. 3. A significantly positive ILAN result is defined as a positive nuclear fluorescence at a titer of 1:80 or greater. 4. 15% of normal people above age 65 have significantly positive ILAN results. 5% or less of normal people age 65 or under have significantly positive ILAN results. Current interpretive data was last revised on 2020. Testing performed by: [facility], [address] [place] [address]., [address] ILAN, quant 1:80 titer PARDEEP FELIZ H (JUAN M) Comment:Testing performed by : [facility], [address] [place]., [address] ILAN, interp Homogeneo us(A) PARDEEP GUERRERO (JUAN M) Comment:Testing performed by : [facility], [address] [place] [address]., [address] Blood 01/29/2025 9:41 AM CDT 01/30/2025 10:37 AM CDT us Waldo Drummond MD LAB BLOOD ORDERABLES Final Res ult PARDEEP GUERRERO (JUAN M) 1 [facility] [place] [address] * Beta 2 glycoprotein antibody, IgG, IgM (01/29/2025 9:41 AM CDT) Pathologist [facility] Beta-2 glycoprotein I, IgG <1.4 <=19.9 units/mL Comment: Interpretive Data Negative: <20 U/mL Positive: > or = 20 U/mL Beta-2 glycoprotein 1 (Beta-2 GP1) antibodies are a more specific marker of thrombotic risk. It is expected that some samples will be ACL positive and Beta- 2 [id number]. In order to improve specificity, the International Congress on Antiphospholipid Antibodies recommends Beta-2 GP1 antibodies of IgG or IgM isotype (> the 99th percentile), obtained twice, at least 12 weeks apart, to support a diagnosis of antiphospholipid syndrome. The cutoff for this assay was developed from data based on the 99th percentile. These results were obtained with the [employer] BioPlex 2200 System. Beta 2GP1 IgG values obtained with different manufacturers' assay methods may not be used interchangeably. Current interpretive data was last revised on 2016. Testing performed by: [facility], [address] [place]., [address] Beta-2 glycoprotein I, IgM <1.5 <=19.9 units/mL PARDEEP ASHRAF) Comment: Interpretive Data Negative: <20 U/mL Positive: > or = 20 U/mL Beta- 2 glycoprotein 1 (Beta-2 GP1) antibodies are a more specific marker of thrombotic risk. It is expected that some samples will be ACL positive and Beta- 2 GP1 negative. In order to improve specificity, the International Congress on Antiphospholipid Antibodies recommends Beta-2 GP1 antibodies of IgG or IgM isotype (> the 99th percentile), obtained twice, at least 12 weeks apart, to support a diagnosis of antiphospholipid syndrome. The cutoff for this assay was developed from data based on the 99th percentile. The Beta-2 GP1 IgM test can produce false positive results due to cross-reactivity with Rheumatoid factor. These results were obtained with the [employer] BioPlex 2200 System. Beta-2 GP1 IgM values obtained with different manufacturers' assay methods may not be used interchangeably. Current interpretive data was last revised on 2016. Testing performed by: [facility], [address] [place]., [address] Blood 01/29/2025 9:41 AM CDT 01/30/2025 10:12 AM CDT us Waldo Drummond MD LAB BLOOD ORDERABLES Final Res ult Performing Organization Address [facility] Co de Phone Number PARDEEP GUERRERO ([place]) 1 [facility] [place] [address] * BLOOD MISC TO ATLANTA (01/29/2025 9:41 AM CDT) Test name, chem ACLIP [place] ref [facility] Comment:Testing performed by : [facility], [address] [place] [address], [address] [facility] See Footnote PARDEEP GUERRERO ([place]) Comment: Test Result Flag Unit RefValue Phospholipid Ab IgA, S <9.4 APL -- REFERENCE VALUE -- <15.0 (Negative) Test Performed by: [place] [address] Hydraulic Dredge Operator: Steven Hester Ph.D.; CLIA# [id number] Testing performed by: [address], [address] Blood 01/29/2025 9:41 AM CDT 01/30/2025 9:18 AM CDT Narrative MARYJERALD CESAR ([place]) - 01/31/2025 11:22 PM CDT Phospholipid Ab IgA, S Waldo Drummond MD LAB BLOOD ORDERABLES Final Res ult Performing Organization Address [facility]/ZIP Co de Phone Number PARDEEP GUERRERO ([place]) 1 [facility] [place] [address] [place] [facility] * SCL 70 abs (01/29/2025 9:41 AM CDT) Anti-Scl70, IgG 0.3 <=0.9 Ab Index Comment: Interpretive Data Negative: < 1.0 Ab Index Positive: > or = 1.0 Ab Index Current interpretive data was last revised on 2016. Testing performed by: [facility], [address] [place]., [address] Blood 01/29/2025 9:4 1 AM CDT 01/30/2025 10:54 AM CDT Waldo Drummond MD LAB BLOOD ORDERABLES Final Res ult Performing Organization Address City/[facility]/ZIP Co de Phone Number PARDEEP GUERRERO ([place]) 1 [facility] [place] [address] * eGFR (01/29/2025 9:41 AM CDT) eGFR >90 >=60 mL/min/1. 73 m2 Comment: Interpretive Data Reference Interval Normal >/= 90 mL/min/1.73m2 Mildly decreased* 60 - 89 mL/min/1.73m2 Mildly to moderately decreased 45 - 59 mL/min/1.73m2 Moderately to severely decreased 30 - 44 mL/min/1.73m2 Severely decreased 15 - 29 mL/min/1.73m2 Kidney Failure < 15 mL/min/1.73m2 *Relative to young adult level Estimated glomerular filtration rate is determined by the 2020 CKD-EPI equation recommended by the National Kidney Foundation (A Unifying Approach to GFR Estimation: Recommendations of the NKF-ASK Task Force on Reassessing the Inclusion of Race in Diagnosing Kidney Disease, JASN 2020). The CKD-EPI equation should not be used for patients with unstable renal function and has not been validated in children and those over 70. Current interpretive data was last reviewed 2021. Testing performed by: [facility], [address] [place] [address], [place]., [address] Blood 01/29/2025 9:41 AM CDT 01/29/2025 3:20 PM CDT us Waldo Drummond MD LAB BLOOD ORDERABLES Final Res ult PARDEEP GUERRERO ([place]) 1 [facility] [place] [address] * Godinez abs (01/29/2025 9:41 AM CDT) Anti-ODIN, SM <0.2 <=0.9 Ab Index Comment: Interpretive Data Negative: < 1.0 Ab Index Positive: > or = 1.0 Ab Index Current interpretive data was last revised on 2016. Testing performed by: [facility], [address] [place] [address]., [address] Blood 01/29/2025 9:41 AM CDT 01/30/2025 10:54 AM CDT Waldo Drummond MD LAB BLOOD ORDERABLES Final Res ult Performing Organization Address City/[facility]/ZIP Co de Phone Number [facility] ([place]) [address] [place] [address] * (ABNORMAL) COUNSELOR DORMITORY abs (01/29/2025 9:41 AM CDT) COUNSELOR DORMITORY ab 1.3(H) <=0.9 Ab Index Comment: Interpretive Data Negative: < 1.0 Ab Index Positive: > or = 1.0 Ab Index Current interpretive data was last revised on 2016. Testing performed by: [facility], [address] [place] [address]., [address] Blood 01/29/2025 9:41 AM CDT 01/30/2025 10:54 AM CDT Waldo Drummond MD LAB BLOOD ORDERABLES Final Res ult [facility] ([place]) [address] [place] [address] * (ABNORMAL) ODIN ab eval w/reflex (01/29/2025 9:41 AM CDT) ODIN ab Positive( A) Negative Comment: Interpretive Data Positive Screens will be reflexed to specific testing for Antibodies against the following antigens: Latoya-1 Ab, COUNSELOR DORMITORY Ab, Scl-70 Ab, Godinez Ab, SS-A/Ro Ab, and SS- B/La Ab. Further testing for dsDNA, Centromere, or Ribosomal P antibodies is suggested in patient with a positive screen and negative specific antibodies. Current interpretive data was last revised on 2022. Testing performed by: [facility], [address] [place] [address]., [address] Blood 01/29/2025 9:41 AM CDT 01/30/2025 10:37 AM CDT Waldo Drummond MD LAB BLOOD ORDERABLES Final Res ult Performing Organization Address City/[facility] Co de Phone Number [facility] [place]) [address] [place] [address] [place] [address] * Latoya-1 antibody (01/29/2025 9:41 AM CDT) Latoya 1 Antibody, IgG <0.2 <=0.9 Ab Index Comment: Interpretive Data Negative: < 1.0 Ab Index Positive: > or = 1.0 Ab Index Current interpretive data was last revised on 2016. Testing performed by: [facility], [address] [place]., [address] Blood 01/29/2025 9:41 AM CDT 01/30/2025 10:54 AM CDT Waldo Drummond MD LAB BLOOD ORDERABLES Final Res ult [facility] ([place]) [address] [place] [address] [place] [address] * TB test, quantiferon gold (01/29/2025 9:41 AM CDT) Quantiferon TB Gold Negative Negative [place] [facility] Comment: No interferon-gamma response to M. tuberculosis antigens was detected. Latent infection with M. tuberculosis is unlikely. A single negative result does not exclude infection with M. tuberculosis. In patients at high risk for M.tuberculosis infection, a second test should be considered in accordance with the 2017 ATS/IDSA/CDC Clinical Practice Guidelines for Diagnosis of Tuberculosis in Adults and Children [Lewinsohn SOPHIE et. al. Clin. Infect. Dis. 2017;64(2):111-115]. The reference range for the 'TB1 Ag minus Nil Result' and 'TB2 Ag minus Nil Result' is an Interferon-gamma level <0.35 IU/mL. Testing performed by: [facility], [address] [place] [address], [address] TB-Nil 0.00 IUnits/mL [facility] (JUAN M) Comment:Testing performed by : [address], [address] TB2-Nil 0.00 IUnits/mL [facility] (JUAN M) Comment:Testing performed by : [address], [address] Mitogen-Nil >10.00 IUnits/mL [facility] (JUAN M) Comment:Testing performed by : [facility], [address] [place] [address], [address] NIL 0.01 IUnits/mL [facility] (JUAN M) Comment: Test Performed by: [facility] [address] [place] [address] Hydraulic Dredge Operator: Steven Hester Ph.D.; CLIA# [id number] Testing performed by: [address], [address] Blood 01/29/2025 9:41 AM CDT 01/29/2025 3:07 PM CDT us Waldo Drummond MD LAB BLOOD ORDERABLES Final Res ult PARDEEP GUERRERO ([place]) 1 [facility] [place] [address] [place] ref [facility] * Urinalysis reflex to microscopic (01/29/2025 9:41 AM CDT) [facility] Signature Color, ur Straw Yellow Comment:Testing performed by : [address] [address] Clarity, ur Clear Clear CERNER A (JUAN M) Comment:Testing performed by : [address] [address] Specific gravity, ur 1.011 1.003 - 1.030 [facility] (JUAN M) Comment:Testing performed by : [address], [address] pH, urine 6.0 [facility] (JUAN M) Comment: Interpretive Data U rine pH is affected by diet, medications, systemic acid-base disturbances, and renal tubular function. pH may affect urinary stone formation. For example, urine pH below 6.0 may help reduce the tendency for calcium phosphate stones and pH greater than 6.0 may reduce the tendency for uric acid stone formation. Source: [facility] [employer] Current Interpretive Data was last revised on 2017 Testing performed by: [address], [address] Protein, ur ql Negative Negative [facility] (JUAN M) Comment:Testing performed by : [address], [address] Glucose, ur ql Negative Negative [facility] (JUAN M) Comment:Testing performed by : [address] [address] Ketones, ur Negative Negative CERNER A (JAUN M) Comment:Testing performed by : [address], [address] Bilirubin, ur Negative Negative [facility] (JUAN M) Comment:Testing performed by : [address] [address] Blood, ur Negative Negative [facility] (JUAN M) Comment:Testing performed by : [address] [address] Urobilinogen, ur <2.0 <2.0 mg/dL [facility] (JUAN M) Comment:Testing performed by : [address] [address] Nitrite, ur Negative Negative [facility]ER A (JUAN M) Comment:Testing performed by : [address], [address] Leukocyte esterase, ur Negative Negative PARDEEP GUERRERO ([place] M) Comment:Testing performed by : [facility], [address] [place] [address]., [address] UA reflex comment Reflex conditions for microscopic UA not met. PARDEEP GUERRERO (JUAN M) Comment:Testing performed by : [facility], [address] [place] [address]., [address] Urine, clean voided 01/29/2025 9:41 AM CDT 01/29/2025 2:57 PM CDT Waldo Drummond MD LAB URINE ORDERABLES Final Res ult Performing Organization Address City/[facility] Co de Phone Number PARDEEP GUERRERO ([place]) 1 [facility] [place] [address] * Thyroid peroxidase antibody (TPO) (01/29/2025 9:41 AM CDT) Anti Thyroid Peroxidase <30 <=34 IUnits/mL Comment: ATPO Interpretive Data Results may be up to 28% higher in patients receiving Itraconazole. Current interpretive data was last revised 2020. Testing performed by: [facility], [address] [place] [address]., [address] Blood 01/29/2025 9:41 AM CDT 01/30/2025 10:22 AM CDT Waldo Drummond MD LAB BLOOD ORDERABLES Final Res ult Performing Organization Address [facility] Co de Phone Number PARDEEP GUERRERO ([place]) 1 [facility] [place] [employer] [place] [address] * Cyclic citrul peptide antibody, IgG (01/29/2025 9:41 AM CDT) CCP Ab <0.5 <=2.9 units/mL Comment: Interpretive data Negative: <3 units/mL Positive: > or equal to 3 units/mL Current interpretive data was last revised on 2016. Testing performed by: [facility], [address] [place]., [address] Blood 01/29/2025 9:41 AM CDT 01/30/2025 10:12 AM CDT Waldo Drummond MD LAB BLOOD ORDERABLES Final Res ult PARDEEP GUERRERO (JU[place] M) 1 [facility] [place] [address] * Hepatitis panel, acute Blood (01/29/2025 9:41 AM CDT) Hep A IgM Nonreactive Nonreactive Comment: Interpretive Data: If Hep A IgM Ab is reported as Equivocal, a new sample should be drawn in two weeks for testing. Current interpretive data was last revised on 19. Testing performed by: [address] [address] Hep B core IgM Nonreactive Nonreactive Janett GUERRERO (JUAN M) Comment: Interpretive Data If HepB Core IgM Ab is reported as Equivocal, a new sample should be drawn in two weeks for testing. Current interpretive data was last revised on 19. Testing performed by: [address] [address] Hep C Ab Nonreactive Nonreactive PARDEEP GUERRERO (JUAN M) Comment: Interpretive Data Nonreactive: Antibodies to HCV not detected. Does NOT exclude the possibility of recent exposure to HCV. Equivocal: Equivocal for HCV antibodies. Supplemental molecular testing will be automatically performed to determine infection status in accordance with current CDC screening recommendations. Reactive: Positive for HCV antibodies. This may represent current or past HCV infection. Supplemental molecular testing will be automatically performed to determine current infection status in accordance with current CDC screening recommendations. Interpretive data was last revised on 2019. Testing performed by: [address] [id number] HepBsAg Nonreactive Nonreactive PARDEEP GUERRERO (JUAN M) Comment:Testing performed by : [address] [id number] Blood 01/29/2025 9:41 AM CDT 01/29/2025 2:57 PM CDT us Waldo Drummond MD LAB MICROBIOLOGY - GENERAL ORD ERABLES Final Result PARDEEP ASHRAF) 1 [facility] [place] [address] * (ABNORMAL) Inflammatory bowel disease panel (01/29/2025 9:41 AM CDT) ANCA, quant Negative Negative [facility] Comment:Testing performed by : [facility], [address] [place] [address]., [id number] ANCA interp See Footnote PARDEEP GUERRERO (JUAN M) Comment: Negative pANCA with detectable IgA or IgG S. cerevisiae antibodies. Results may be consistent with Crohn's disease. Correlation with clinical symptoms, endoscopy and biopsy findings are required to establish the diagnosis. ADDITIONAL INFORMATION This test was developed and its performance characteristics determined by [facility] in a manner consistent with CLIA requirements. This test has not been cleared or approved by the U.S. Food and Drug Administration. Testing performed by: [facility], [address] [place] [address]., [id number] Saccharomyces cerevisiae Antibody, IgA, Serum 109.3(H) <20.0 (Negative) RU/mL PARDEEP GUERRERO (JUAN M) Comment: ADDITIONAL INFORMATION This test was developed and its performance characteristics determined by [facility] in a manner consistent with CLIA requirements. This test has not been cleared or approved by the U.S. Food and Drug Administration. Testing performed by: [facility], [address] [place] [address]., [id number] Saccharomyces cerevisiae Antibody, IgG, Serum 62.5(H) <20.0 (Negative) RU/mL PARDEEP GUERRERO (JUAN M) Comment: ADDITIONAL INFORMATION This test was developed and its performance characteristics determined by [facility] in a manner consistent with CLIA requirements. This test has not been cleared or approved by the U.S. Food and Drug Administration. Test Performed by: [facility] Laboratories - [facility] [address] [place] [address] Hydraulic Dredge Operator: Steven Hester Ph.D.; CLIA# [id number] Testing performed by: [facility], [address] [place] [address], [id number] Blood 01/29/2025 9:41 AM CDT 01/29/2025 2:57 PM CDT Waldo Drummond MD LAB BLOOD ORDERABLES Final Res ult Performing Organization Address City/[facility]/ZIP Co de Phone Number [facility] ([place]) 1 [facility] [place] [employer] [address] [facility] ref [facility] * Hepatitis B surface antibody (immune status) Blood (01/29/2025 9:41 AM CDT) HBsAb (immune status) Nonreactive Comment: Interpretive Data Nonreactive: This result is consistent with a lack of immunity to Hepatitis B Virus when used in the setting of routine screening. Equivocal: The immune status of the individual should be further assessed, if appropriate, after consideration of clinical status, risk factors, and additional diagnostic information. Reactive: This result is consistent with immunity to Hepatitis B Virus when used in the setting of routine screening. Current interpretive data was last revised on 19. Testing performed by: [facility], [address] [place] [address], [id number] Blood 01/29/2025 9:41 AM CDT 01/29/2025 2:57 PM CDT us Waldo Drummond MD LAB MICROBIOLOGY - GENERAL ORD ERABLES Final Result Performing Organization Address City/[facility]/ZIP Co de Phone Number [facility] (JUAN M) 1 [facility] [employer] [place], [place] [id number] * Sjogren's syndrome B ab (01/29/2025 9:41 AM CDT) Anti-ODIN, SS-B <0.2 <=0.9 Ab Index Comment: Interpretive Data Negative: < 1.0 Ab Index Positive: > or = 1.0 Ab Index Current interpretive data was last revised on 2016. Testing performed by: [facility], [address] [place] [address]., [id number] Blood 01/29/2025 9:41 AM CDT 01/30/2025 10:54 AM CDT Waldo Drummond MD LAB BLOOD ORDERABLES Final Res ult Performing Organization Address [facility] Co de Phone Number [facility] ([place]) [address] [place] [address] [place] [address] * Sjogren's syndrome A ab (01/29/2025 9:41 AM CDT) Anti-ODIN, SS-A <0.2 <=0.9 Ab Index Comment: Interpretive Data Negative: < 1.0 Ab Index Positive: > or = 1.0 Ab Index Current interpretive data was last revised on 2016. Testing performed by: [facility], [address] [place] [address]., [id number] Blood 01/29/2025 9:41 AM CDT 01/30/2025 10:54 AM CDT Waldo Drummond MD LAB BLOOD ORDERABLES Final Res ult [facility] ([place]) [address] [place] [address] [place] [address] * Erythrocyte sedimentation rate (01/29/2025 9:41 AM CDT) Erythrocyte sedimentation rate 10 1 - 30 mm/hr Comment:Testing performed by : [facility], [address] [place] [address]., [id number] Blood 01/29/2025 9:41 AM CDT 01/29/2025 2:57 PM CDT Waldo Drummond MD LAB BLOOD ORDERABLES Final Res ult [facility] ([place]) 1 [facility] [place] [address] * (ABNORMAL) CBC without differential (01/29/2025 9:41 AM CDT) WBC 9.31 3.80 - 9.90 K/cumm Comment:Testing performed by : [address], [address] Hgb 14.2 11.9 - 15.5 g/dL [facility] ([place]) Comment:Testing performed by : [address], [address] Hct 44.5 35.6 - 45.5 % [facility] ([place]) Comment:Testing performed by : [address], [address] Plt 357 150 - 400 K/cumm [facility] ([place]) Comment:Testing performed by : [address], [address] MPV 10.7 9.1 - 12.3 fL [facility] ([place] M) Comment:Testing performed by : [address], [address] RBC 4.99 3.90 - 5.20 M/cumm [facility] ([place] M) Comment:Testing performed by : [address], [address] MCV 89.2 81.3 - 96.4 fL [facility] ([place] M) Comment:Testing performed by : [address], [address] MCH 28.5 27.1 - 33.3 pg [facility] ([place] M) Comment:Testing performed by : [address], [address] MCHC 31.9(L) 32.3 - 35.7 g/dL [facility] ([place] M) Comment:Testing performed by : [facility], [address] [place] [address], [id number] RDW CV 12.6 11.1 - 14.9 % PARDEEP GUERRERO (JUAN M) Comment:Testing performed by : [facility], [address] [place] [address], [address] RDW SD 41.2 35.7 - 48.1 fL PARDEEP GUERRERO (JUAN M) Comment:Testing performed by : [facility], [address] [place] [address], [id number] NRBC abs 0.00 0.00 - 0.01 K/cumm PARDEEP GUERRERO (JUAN M) Comment:Testing performed by : [facility], [address] [place] [address], [id number] Blood 01/29/2025 9:41 AM CDT 01/29/2025 2:57 PM CDT Waldo Drummond MD LAB BLOOD ORDERABLES Final Res ult PARDEEP GUERRERO ([place]) 1 [facility] [place] [address] * Rheumatoid factor (01/29/2025 9:41 AM CDT) Pathologist [facility] Rheumatoid factor, quant <10 <=15 IUnits/mL Comment:Testing performed by : [address], [address] Blood 01/29/2025 9:41 AM CDT 01/29/2025 2:57 PM CDT Waldo Drummond MD LAB BLOOD ORDERABLES Final Res ult PARDEEP GUERRERO ([place]) 1 [facility] [place] [address] * CRP (acute phase) (01/29/2025 9:41 AM CDT) Pathologist [facility] CRP 4.2 <=10.0 mg/L Comment:Testing performed by : [address] [address] Blood 01/29/2025 9:41 AM CDT 01/29/2025 2:57 PM CDT us Waldo Drummond MD LAB BLOOD ORDERABLES Final Res ult PARDEEP GUERRERO ([place]) 1 [facility] [place] [address] * Uric acid (01/29/2025 9:41 AM CDT) Uric acid 5.9 2.5 - 7.0 mg/dL Comment:Testing performed by : [address], [address] Blood 01/29/2025 9:41 AM CDT 01/29/2025 2:57 PM CDT Waldo Drummond MD LAB BLOOD ORDERABLES Final Res ult Performing Organization Address [facility] Co de Phone Number APRDEEP GUERRERO ([place]) 1 [place] [address] * (ABNORMAL) TSH (01/29/2025 9:41 AM CDT) Pathologist [facility] Thyroid Stimulating Hormone 0.08(L) 0.30 - 4.20 mcIUnit/mL Comment:Testing performed by : [address] [place]., [address] Blood 01/29/2025 9:41 AM CDT 01/29/2025 2:57 PM CDT us Waldo Drummond MD LAB BLOOD ORDERABLES Final Res ult PARDEEP GUERRERO ([place]) [address] [place] [address] * Phosphorus (01/29/2025 9:41 AM CDT) Phosphorus, pl 3.4 2.3 - 4.5 mg/dL Comment:Testing performed by : [facility], [address] [place] [address]., [id number] Blood 01/29/2025 9:41 AM CDT 01/29/2025 2:57 PM CDT Waldo Drummond MD LAB BLOOD ORDERABLES Final Res ult PARDEEP GUERRERO ([place]) 1 [facility] [place] [address] * Comprehensive metabolic panel (01/29/2025 9:41 AM CDT) Sodium 140 135 - 145 mmol/L Comment:Testing performed by : [facility], [address] [place] [address]., [address] Potassium, pl 4.5 3.3 - 4.9 mmol/L [facility] ([place] M) Comment:Testing performed by : [facility], [address] [place] [address]., [address] Chloride 105 97 - 110 mmol/L [facility] (JUANM ) Comment:Testing performed by : [address], [address] CO2 24 22 - 32 mmol/L [facility] ([place] M) Comment:Testing performed by : [address], [address] Anion gap 11 2 - 15 mmol/L [facility] (JUAN M) Comment:Testing performed by : [address] [address] BUN 22 6 - 25 mg/dL [facility] ([place] M) Comment:Testing performed by : [address], [address] Creatinine 0.74 0.60 - 1.10 mg/dL [facility] ([place]UAN M) Comment:Testing performed by : [address], [address] Glucose 96 70 - 199 mg/dL [facility] (JUAN M) Comment: Interpretive Data Fasting glucose >/= 126 mg/dl is diagnostic for diabetes. Fasting is defined as no caloric intake for at least 8 hours. Fasting glucose between 100 mg/dl to 125 mg/dl is diagnostic of prediabetes. In a patient with classic symptoms of hyperglycemia or hyperglycemic crisis, a random glucose >/= 200 mg/dl is diagnostic for diabetes. In the absence of unequivocal hyperglycemia, results should be confirmed by repeat testing. The classification and Diagnosis of Diabetes Diabetes Care 202; 46: S19-S40. Current interpretive data was last revised 2022. Testing performed by: [facility], [address] [place] [address], [id number] Calcium 9.6 8.5 - 10.3 mg/dL [facility] ([place]) Comment:Testing performed by : [address], [address] Bilirubin, total 0.4 0.1 - 1.2 mg/dL [facility] ([place]) Comment:Testing performed by : [address], [address] Protein, pl 7.4 6.5 - 8.5 g/dL [facility] ([place]) Comment:Testing performed by : [address], [address] Albumin 4.2 3.5 - 5.0 g/dL [facility] ([place]) Comment:Testing performed by : [address], [address] Alk phos 122 40 - 130 Units/L [facility] ([place]) Comment:Testing performed by : [address], [address] ALT 15 7 - 45 Units/L [facility] ([place]) Comment:Testing performed by : [address], [address] AST 20 10 - 45 Units/L [facility] ([place]) Comment:Testing performed by : [address], [address] Blood 01/29/2025 9:41 AM CDT 01/29/2025 2:57 PM CDT us Waldo Drummond MD LAB BLOOD ORDERABLES Final Res ult [facility] ([place]) 1 [facility] [place] [address] * Gliadin antibody, IgA (01/29/2025 9:33 AM CDT) Anti-gliadin, IgA 2.7 <=14.9 units/mL Comment: Interpretive data Negative: <15 units/mL Positive: > or equal to 15 units/mL Current interpretive data was last revised on 2016. Testing performed by: [facility], [address] [place] [address]., [address] Blood 01/29/2025 9:33 AM CDT 01/30/2025 10:12 AM CDT Waldo Drummond MD LAB BLOOD ORDERABLES Final Res ult Performing Organization Address City/[facility] Co de Phone Number PARDEEP GUERRERO ([place]) [address] [place] [address] * Tissue transglutaminase IgA (TGG-IgA Ab) (01/29/2025 9:33 AM CDT) TTG ab, IgA <0.5 <=14.9 units/mL Comment: Interpretive data Negative: <15 units/mL Positive: > or equal to 15 units/mL Current interpretive data was last revised on 2016. Testing performed by: [facility], [address] [place] [address]., [id number] Blood 01/29/2025 9:33 AM CDT 01/30/2025 10:12 AM CDT us Waldo Drummond MD LAB BLOOD ORDERABLES Final Res ult PARDEEP GUERRERO ([place]) [address] [place] [address] * Screening Mammogram Bilateral W Cyrus (09/29/2023 8:43 AM CDT) Anatomical Region Laterality Modality Breast Bilateral Mammography 09/29/2023 8:56 AM CDT Impressions 09/29/2023 8:56 AM CDT There is no mammographic evidence of malignancy. A 1 year screening mammogram is recommended. BI-RADS: 1 - Negative. The patient has been or will be contacted. The patient will be entered into a reminder system with a target due date of 1 year for her next mammogram. Electronically signed by: Thelma Dejesus M.D. Narrative 09/29/2023 8:56 AM CDT EXAMINATION: SCREENING MAMMOGRAM BILATERAL W CYRUS ORDERING HEALTHCARE PROVIDER: SELF SCREENING MAMMOGRAM HISTORY: Routine screening mammography. COMPARISON: 02/26/2021, 03/20/2019, 09/22/2016 TECHNIQUE: CC and MLO views of the bilateral breasts were obtained with digital technique using breast tomosynthesis with C view. Computer aided detection was utilized. FINDINGS: DENSITY: There are scattered fibroglandular elements in the bilateral breasts. BREASTS: There is a biopsy marker clip in the left breast. There are no suspicious masses, suspicious calcifications, or other suspicious findings in either breast. There has been no suspicious interval change. us Self Screening Mammogram IMG MAMMO PROCEDURES Fi nal Result from Last 3 Months or Most Recently Relevant to Health Maintenance Insurance [facility] [place] [facility] [place] Care Teams Director Translational Relationship Specialty Start Date End Date Gia Reyes MD PCP - General 02/26/21
[2025-02-15 14:47] LABS: Hematocrit 47.2 % (37.0-47.0); Hemoglobin 14.7 g/dL (12.0-15.0); Immature Granulocyte Percent A 0.4 % (0-0.5); Lymphocytes Absolute Auto 1.86 K/mm3 (0.9-3.2); Mean Corpuscular HGB Conc 31.1 g/dl (32-36); Mean Corpuscular Hemoglobin 28.5 pg (26-34); Mean Corpuscular Volume 91.5 fl (80-100); Nucleated Red Blood Cells Absolute Auto 0.000 K/mm3 (0.0-0.012); Nucleated Red Blood Cells Perc 0.0 % (0.0-0.2); Platelet Count Result 384 k/mm3 (150-375); Red Blood Count 5.16 M/mm3 (4.2-5.4); White Blood Count 7.8 K/mm3 (4.5-10.0)
[2025-02-15 16:17] LABS: Alanine Aminotransferase 22 U/L (6-35); Albumin Level 4.4 g/dL (3.5-5.1); Alkaline Phosphatase 118 U/L (38-126); Anion Gap 7 mmol/L (4-12); Aspartate Amino Transferase 34 U/L (14-36); Bilirubin,Total 0.4 mg/dL (0.2-1.3); Blood Urea Nitrogen 13 mg/dL (7-17); Calcium 9.7 mg/dL (8.4-10.2); Carbon Dioxide 28 mmol/L (22-30); Chloride 103 mmol/L (98-107); Cholesterol 247 mg/dL (0-200); Estimated Glomerular Filt Rate > 60; Glucose 82 mg/dL (65-110); HDL Direct 79 mg/dL; Magnesium 2.2 mg/dL (1.6-2.3); Potassium 4.5 mmol/L (3.4-5.0); Sodium 138 mmol/L (137-145); Total Protein 8.2 g/dL (6.3-8.2); Triglycerides 87 mg/dL (<150)
[2025-02-15 16:23] LABS: Troponin I < 0.012 ng/mL (0.000-0.034)
[2025-02-15 16:46] LABS: Free T3 4.75 pg/mL (2.45-5.93); Free T4 Free Thyroxine 0.83 ng/dL (0.78-2.19)
[2025-02-15 16:58] LABS: Thyroid Stimulating Hormone Reflex 0.035 uIU/mL (0.465-4.68)
[2025-02-15 17:01] LABS: Vitamin B12 524.0 pg/mL (239-931)
[2025-02-15 18:27] LABS: Hemoglobin A1C 5.5 % (<5.7)
== END 2025-02-15 09:17 | disposition home or self-care (01) ==
LOC: ANHGOSHLAB 09:17
PROVIDERS: PCP Nurse Practitioner Family; Visit Provider Nurse Practitioner Family
DX: R00.2 Palpitations (principal); R73.9 Hyperglycemia, unspecified; E07.9 Disorder of thyroid, unspecified
CPT/HCPCS: 36415; 80053; 80061; 82306; 82607; 83036; 83520; 83735; 84439; 84443; 84481; 84484; 85025; 86376

== ENCOUNTER 2025-02-15 09:24 | Outpatient (CLI) | payer BC, SELFPAY ==
--- NOTE | ~2025-02-15 | XR_ITS ---
XR cervical spine min 6V Indication: Cervicalgia, dizziness and numbness x 2 weeks Comparison: None Findings: The vertebral heights are intact. No fracture or subluxation. Severe loss of disc height C3-4, C4-5 and C5-6 and C7 with narrowing of the foramina bilaterally at these levels no fracture identified, no subluxation with flexion and extension, the vertebral heights are intact Soft tissues unremarkable Impression: No acute abnormality. Reviewed, dictated and finalized at location A. Impression: No acute abnormality.
== END 2025-02-15 09:25 | disposition home or self-care (01) ==
LOC: GOSHIMG 09:25
PROVIDERS: PCP Nurse Practitioner Family; Visit Provider Nurse Practitioner Family
DX: R29.890 Loss of height (principal); R20.0 Anesthesia of skin; R20.2 Paresthesia of skin
CPT/HCPCS: 72052

== ENCOUNTER 2025-03-14 11:29 | Outpatient (CLI) | payer BC, SELFPAY ==
--- NOTE | ~2025-03-14 | XR_ITS ---
EXAMINATION: XR sacroiliac joints min 3V, 03/14/2025 11:37 CDT HISTORY: low back pain x 6 months, no injury, no surgeries COMPARISON: No comparisons available. Findings: No acute fracture or malalignment. No significant sclerosis of the sacroiliac joints with no bridging osteophyte formation or erosions. Soft tissues unremarkable. Impression: No acute fracture or malalignment. Reviewed, dictated and finalized at location A. Impression: No acute fracture or malalignment.
== END 2025-03-14 11:30 | disposition home or self-care (01) ==
PROVIDERS: PCP Internal Medicine; Visit Provider Internal Medicine
DX: M54.50 Low back pain, unspecified (principal)
CPT/HCPCS: 72202